=== PATIENT | female | born 2000 | race Caucasian/White ===

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

== ENCOUNTER → 2021-04-03 | Outpatient (CLI) | payer BC, SELFPAY | END | disposition home or self-care (01) | LOC: LABSPEC 12:32 | PROVIDERS: PCP Pediatrics; Referring Provider Nurse Practitioner Women's Health; Visit Provider Nurse Practitioner Women's Health | DX: N76.0 Acute vaginitis (principal) | CPT/HCPCS: 87070; 87205 ==

== ENCOUNTER 2021-04-17 13:30 | Outpatient (CLI) | payer BC, SELFPAY ==
--- NOTE | 2021-04-17 13:31 | US_ITS ---
STUDY: ULTRASOUND BREAST - LEFT REASON FOR EXAM: Female, 21 years old. Pain in the left breast. TECHNIQUE: Axial and longitudinal images of the LEFT breast were performed with a high resolution ultrasound transducer. # OF IMAGES: 47 COMPARISON: None. FINDINGS: LEFT Breast: The lateral aspect of the left breast as well as the retroareolar region of the left breast was examined by ultrasound. No sonographic normality is seen. Incidental note is made of a 6 mm x 6 mm x 3 mm well-defined nodule in the left axilla. US/Breast Complete Unilateral IMPRESSION: Incidental note is made of a 6 mm x 6 mm x 3 mm benign-appearing left axillary lymph node. ASSESSMENT CATEGORY: BIRADS Category 2: Benign. A letter regarding these results will be sent to the patient by the facility within 30 days. Electronically Signed: Levon Champagne MD at 14:40 EST , Service support ,
== END 2021-04-17 23:59 | disposition short-term general hospital (02) ==
LOC: OPUS 13:30
PROVIDERS: PCP Pediatrics; Visit Provider Nurse Practitioner Women's Health
DX: N64.4 Mastodynia (principal)
CPT/HCPCS: 76641

== ENCOUNTER → 2022-03-18 | Outpatient (CLI) | payer BC, SELFPAY ==
--- NOTE | 2022-03-18 14:22 | BI_ITS ---
MAMMOGRAPHY - BILATERAL DIAGNOSTIC REASON FOR EXAM: Female, 22 years old. Left breast pain with burning and itchiness. PERTINENT HISTORY: Non-contributory. TECHNIQUE: Digital bilateral breast altaf (3D mammographic acquisition) in the CC and MLO projections. 2-D mediolateral oblique (MLO) and craniocaudad (CC) views of both breasts were obtained. CAD: Full Field Digital Mammography with Computer Added Detection was performed. COMPARISON: None. Baseline examination. FINDINGS: Breast Composition: The breasts are extremely dense, which lowers the sensitivity of mammography. There are no dominant masses or suspicious calcifications. No other significant abnormalities are identified. BI/DIAG MAMM W/CAD, BILAT IMPRESSION: Negative diagnostic mammogram. Correlation with ultrasound is recommended. ASSESSMENT CATEGORY: BIRADS Category 0: Incomplete. Need additional imaging evaluation. A letter regarding these results will be sent to the patient by the facility within 30 days. Approximately 10% of breast cancers are not detected by mammography. A normal mammogram should not delay biopsy of a clinically suspicious abnormality. Electronically Signed: Levon Champagne MD at 15:31 EST ,
--- NOTE | 2022-03-18 14:22 | US_ITS ---
STUDY: ULTRASOUND BREAST - LEFT REASON FOR EXAM: Female, 22 years old. Pain in the left breast. TECHNIQUE: Axial and longitudinal images of the LEFT breast were performed with a high resolution ultrasound transducer. # OF IMAGES: 25 COMPARISON: Comparison is made with prior mammogram done earlier today and prior sonogram of the left breast dated 04/17/2021.. FINDINGS: LEFT Breast: The retroareolar region of the breast was examined with ultrasound. No sonographic abnormality is seen. Incidental note is made of a 6 mm x 7 mm x 3 mm benign-appearing left axillary lymph node. US/Breast Limited Unilateral IMPRESSION: No significant abnormality is seen. Stable examination. ASSESSMENT CATEGORY: BIRADS Category 3: Probably Benign - Short-Interval Follow-up Suggested. A letter regarding these results will be sent to the patient by the facility within 30 days. Electronically Signed: Levon Champagne MD at 15:32 EST ,
== END | disposition home or self-care (01) ==
LOC: OPBI 14:20
PROVIDERS: PCP Pediatrics; Visit Provider Nurse Practitioner Women's Health
DX: N64.4 Mastodynia (principal)
CPT/HCPCS: 76642; 77062; 77066; G0279

== ENCOUNTER → 2022-06-28 | Outpatient (CLI) | payer OTHER, SELFPAY ==
--- NOTE | 2022-06-28 09:17 | US_ITS ---
STUDY: ULTRASOUND BREAST - LEFT REASON FOR EXAM: Female, 22 years old. Pain TECHNIQUE: Axial and longitudinal images of the LEFT breast were performed with a high resolution ultrasound transducer. # OF IMAGES: 32 COMPARISON: None. FINDINGS: LEFT Breast: Focused ultrasound evaluation of the left breast the upper outer quadrant shows dense fibroglandular tissue. There is no suspicious shadowing solid lesion, architectural torsion, or clustered shadowing calcifications. US/Breast Limited Unilateral IMPRESSION: No suspicious sonographic findings ASSESSMENT CATEGORY: BIRADS Category 1: Negative. A letter regarding these results will be sent to the patient by the facility within 30 days. Electronically Signed: Narendra James MD at 10:08 EDT ,
== END | disposition home or self-care (01) ==
LOC: OPUS 09:16
PROVIDERS: Referring Provider Obstetrics & Gynecology; Visit Provider Obstetrics & Gynecology
DX: N64.4 Mastodynia (principal)
CPT/HCPCS: 76642

== ENCOUNTER → 2023-05-26 | Outpatient (CLI) | payer OTHER, SELFPAY ==
--- OUTSIDE RECORDS SUMMARY | 2023-05-26 12:26 | XMS RPT_ITS | CCD ---
Author Name Unknown Address [address] [place] [address] Organization [facility] Care Team Providers Care Blind Escort Name Role Phone LANDEN GILLETTE Attending Unavailable JOSE RIGGS Primary Care Unavailable Results Test Name Value Interpretation Reference Range Facil ity Encounters Encounter Date Encounter Type Care Provider Facility Start: 02-25-2023 End: 02-25-2023 ambulatory LANDEN GILLETTE Facility:[facility] Payers Date Payer Category Payer Unknown [id number] Progress note 02-25-2023 Note Date & Type Note Facility 02-25-2023 Note HNO ID: [id number] Author: Landen Gillette MD Service: ? Author Type: Physician Type: Progress Notes Filed: 02/25/2023 2:10 PM Note Text: Patient presents with: Anxiety HPI: Patient presents today for office visit for anxiety. New patient. Has appointment on 04/29/23 to establish care. Sees Dr. Lo with [facility]. Was given Rx for Wellbutrin 300 mg daily. Has been on med for about a year for anxiety issues. She states it does help with her everyday anxiety. Was on multiple ssris. They made her more anxious. Recently started to suffer from panic attacks in the last 6 months. Describes a chocking sensation in her throat. Like gagging that just comes on. She gets flustered and overheated. Feels panicky and nervous. Episodes are happening more frequently. Was maybe once a week now more like daily. Has a hard time going places such as the grocery store, hair/nail salon. Has difficult time in social situations. Gets nauseous and a butterfly sensation in her chest. No chest pain Worries about being in public or going out places. No changes in hair or skin or weight. No new stresses. Had an issue where she had to leave an appt early due to nausea and now is worried will happen when ever she is in public. No suicidal ideation Has to fly on day but is very anxious. Needs something to use prn. No etoh use. Some caffeine intake. About 1/2 cup in the morning. No other caffeine content. MEDICATIONS: Current Outpatient Medications Medication Sig buPROPion XL (WELLBUTRIN XL) 300 mg 24 hr tablet Take 300 mg by mouth every morning. No current facility-administered medications for this visit. ALLERGIES: ALLERGIES No Known Allergies PAST MEDICAL HISTORY Diagnosis Date Atopic derm Congenital pes planus 06/03/2011 Hallux valgus (acquired) 06/03/2011 Menarche age 11 years Other normal color vision 01-17-2004 PAST SURGICAL HISTORY Procedure Laterality Date INSERTION OF IUD 04/08/2017 removed 05/26/2020 recurrent yeast TOOTH EXTRACTION 02/18/2020 wisdom teeth FAMILY HISTORY Problem Relation Age of Onset No Known Problems Mother other (Astigmatism) Father No Known Problems Brother No Known Problems Brother No Known Problems Maternal Grandmother No Known Problems Maternal Grandfather No Known Problems Paternal Grandmother No Known Problems Paternal Grandfather Seizures Maternal Uncle Social History Tobacco Use Smoking status: Never Smokeless tobacco: Never Tobacco comments: parent smokes outside of the home Vaping Use Vaping Use: Never used Substance Use Topics Alcohol use: Yes Drug use: No Reviewed current medications, allergies, past medical history, surgical history, family history and social history today. REVIEW OF SYSTEMS All other reviewed and negative other than HPI. VITALS: BP 118/85 Pulse 92 Ht 154.9 cm (5' 1 ) Wt 51.6 kg (113 lb 12.8 oz) LMP 02/18/2023 (Exact Date) BMI 21.50 kg/m? Last 4 Encounter Wt Readings: Date: Wt: 02/15/2021 47.2 kg (104 lb) 12/24/2020 46.7 kg (103 lb) 12/12/2020 46.8 kg (103 lb 3.2 oz) 11/24/2020 46.5 kg (102 lb 7 oz) PHYSICAL EXAMINATION: General appearance: Well appearing, alert, in no acute distress, well-hydrated, well nourished. Skin: Skin color, texture, turgor normal, no suspicious rashes or lesions Head: Normocephalic, no masses, lesions, tenderness or abnormalitie Lungs: Lungs clear to auscultation. No wheezing, rhonchi, rales Heart: RRR without murmur, gallop, or rubs. No ectopy Abdomen: Normal abdominal exam, Abdomen soft, non-tender. Bowel sounds normal. No masses, organomegaly Extremities: No deformities, edema, skin discoloration, clubbing or cyanosis. Good capillary refill. ASSESSMENT/PLAN: 1. Anxiety - ICD9: 300.00, ICD10: F41.9 (primary diagnosis) - continue meds. Discussed risks and benefits of new medication with the patient. Advised them to call if any side effects or questions. - Red flags for re-assessment reviewed with patient in detail. Use contraception while on meds. - BUSPIRONE 5 MG TABLET - CBC + DIFF - BASIC METABOLIC PNL - TSH BLD 2. Fear of flying - ICD9: 300.29, ICD10: F40.243 - use prn. - HYDROXYZINE PAMOATE 25 MG CAPSULE Landen Gillette MD Keep next [facility] Summary Purpose Family History No Family History Records Found Advance Directives No Advanced Directives Records Found Additional Source Comments INFORMATION SOURCE (unrecogn ized section and content) FOR RECORDS PERTAINING TO PATIENTS WHO ARE OR HAVE BEEN ENROLLED IN A CHEMICAL DEPENDENCY/SUBSTANCEABUSE PROGRAM, SOME INFORMATION MAY BE OMITTED. This clinical summary was aggregated from multiple sources. Caution should be exercised in using it in the provision of clinical care. This summary normalizes information from multiple sources, and as a consequence, information in this document may materially change the coding, format and clinical context of patient data. In addition, data may be omitted in some cases. CLINICAL DECISIONS SHOULD BE BASED ON THE PRIMARY CLINICAL RECORDS. [employer] provides no warranty or guarantee of the accuracy or completeness of information in this document.
[2023-05-28 08:10] LABS: Chlamydia By Nucleic Acid AMP Negative (Negative); Gonococcus By Nucleic Acid AMP Negative (Negative)
[2023-05-29 16:51] LABS: HPV Reflexed? NOT INDICATED
== END | disposition home or self-care (01) ==
LOC: LABSPEC 12:04
PROVIDERS: Referring Provider Obstetrics & Gynecology; Visit Provider Obstetrics & Gynecology
DX: Z12.4 Encounter for screening for malignant neoplasm of cervix (principal); Z11.3 Encounter for screening for infections with a predominantly sexual mode of transmission
CPT/HCPCS: 87491; 87591; 88175; G0145